=== PATIENT | male | born 1980 | race Caucasian/White ===

== ENCOUNTER 2019-10-04 18:49 | Emergency (ER) | payer BC, OTHER ==
[~2019-10-04 18:49] MED LIST: Iopamidol 370 76% 100 ML VIAL ONE
[2019-10-04] MEDS ORDERED: Fentanyl 100 MCG/2 ML VIAL ONE (19:01)
[2019-10-04 19:14] LABS: #Basophils 0.1 thou/uL (0.0-0.2); #Eosinphils 0.2 thou/uL (0.0-0.7); #Lymphocytes 1.9 thou/uL (1.20-3.40); #Neutrophils 6.6 thou/uL (1.40-6.50); %Basophils 1.5 % (0.0-1.0); %Eosinophils 2.5 % (0.0-10.0); %Lymphocytes 19.3 % (21.0-51.0); %Neutrophils 66.8 % (42.0-75.0); Mean Corpuscular HGB CONC 33.2 g/dL (32.0-36.0); Mean Corpuscular Hemoglobin 30.4 pg (27.0-31.0); Mean Corpuscular Volume 91.4 fL (78.0-98.0); Mean Platelet Volume 6.7 fL (7.4-10.4); Platelet Count 323 thou/uL (130-400); RBC Distribution Width 12.2 % (11.5-14.5); Red Blood Cell (RBC) Count 4.28 mill/uL (4.70-6.10); White Blood Cell (WBC) Count 9.9 thou/uL (4.8-10.8)
[2019-10-04 19:22] LABS: ALT (SGPT) 20 U/L (8-55); AST (SGOT) 25 U/L (5-34); Albumin 4.6 g/dL (3.5-5.0); Alkaline Phosphatase 64 U/L (40-110); Anion Gap 18 mmol/L (10-20); BUN (Urea Nitrogen) 11 mg/dL (8.9-20.6); Bilirubin, Total 0.4 mg/dL (0.2-1.2); Calc. Creatinine Clearance 0 mL/min (70-130); Calcium 9.1 mg/dL (7.8-10.44); Carbon Dioxide 22 mmol/L (22-29); Chloride 99 mmol/L (98-107); Estimated GFR-MDRD Greater than 90; Globulin 2.7 g/dL (2.4-3.5); Glucose 88 mg/dL (70-105); Potassium 3.8 mmol/L (3.5-5.1); Protein, Total 7.3 g/dL (6.0-8.3); Sodium 135 mmol/L (136-145)
--- NOTE | 2019-10-04 19:35 | CT ---
CT OF THE BRAIN WITHOUT CONTRAST: 10/04/19 The ventricles are normal in size with no shift. No intracranial bleeding or extra-axial hematoma was seen. There is no sign of stroke, mass or edema. The skull appears intact with no sign of fracture. The visible sinuses are clear. The nasal septum deviates slightly towards the left. IMPRESSION: No acute intracranial findings. POS: HOME
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
[2019-10-04] MEDS ORDERED: Adacel (T-DAP) 0.5 ML SYRINGE ONE (19:44)
[2019-10-04] MEDS ORDERED: Ibuprofen 800 MG TAB ONE (20:04)
[2019-10-04] MEDS ORDERED: HYDROcodone/Acetaminophen 10/325 mg Tablet ONE (20:04)
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
== END 2019-10-04 20:22 | disposition home or self-care (01) ==
LOC: BURERS 18:49
DX: S01.21XA Laceration without foreign body of nose, initial encounter (principal); S20.219A Contusion of unspecified front wall of thorax, initial encounter; Z87.891 Personal history of nicotine dependence; W55.12XA Struck by horse, initial encounter
CPT/HCPCS: 12011; 36415; 70450; 70486; 71260; 72125; 74177; 80053; 85025; 90471; 90715; 94760; 96374; J3010; L0120; Q9967